=== PATIENT | female | born 1945 | race Caucasian/White ===

== ENCOUNTER → 2016-11-24 | Outpatient (CLI) | payer OTHER ==
[~2016-11-24] VITALS: Ht 154.9 cm; Wt 68.0 kg
[~2016-11-24] MED LIST: ATORVASTATIN CA40 MG PO; CALCIUM 500 +1 EAC6 PO; FENOFIBRATE160 MG PO; LEVOTHYROXINE0.05 MG PO; RALOXIFENE HCL60 MG PO; ST. JOSEPH ASPI81 M1 PO
== END | disposition home or self-care (01) ==
LOC: GI 06:44
DX: Z09 Encounter for follow-up examination after completed treatment for conditions other than malignant neoplasm (principal); K57.30 Diverticulosis of large intestine without perforation or abscess without bleeding; E78.00 Pure hypercholesterolemia, unspecified; E03.9 Hypothyroidism, unspecified; Z98.890 Other specified postprocedural states; Z90.710 Acquired absence of both cervix and uterus; Z88.2 Allergy status to sulfonamides; Z80.0 Family history of malignant neoplasm of digestive organs; Z88.8 Allergy status to other drugs, medicaments and biological substances; Z79.82 Long term (current) use of aspirin
CPT/HCPCS: 62110; 62900

== ENCOUNTER → 2017-02-17 | Outpatient (CLI) | payer OTHER ==
[2017-02-17 11:38] LABS: ABSOLUTE NEUTROPHILS 6.5 thou/uL (1.4-8.2); BASOPHILS 1.2 % (0.0-2.0); EOSINOPHILS 1.6 % (0.0-3.0); HEMATOCRIT 40.6 % (37.0-47.0); HEMOGLOBIN 13.6 gm/dL (12.0-15.0); LYMPHOCYTES 13.6 % (24.0-44.0); MCH 30.1 pg (26.0-34.0); MCHC 33.4 g/dL (28.0-37.0); MCV 90.2 fL (80.0-100.0); MONOCYTES 7.6 % (1.0-8.0); PLATELET COUNT 243 thou/uL (150-400); RDW 14.9 % (10.5-14.5); WBC 8.6 thou/uL (4.0-11.0)
[2017-02-17 11:42] LABS: URINE BILIRUBIN NEGATIVE (Negative); URINE BLOOD NEGATIVE (Negative); URINE COLOR YELLOW; URINE GLUCOSE-RANDOM* NEGATIVE (Negative); URINE KETONES NEGATIVE (Negative); URINE NITRITE POSITIVE (Negative); URINE PROTEIN (DIPSTICK) NEGATIVE (Negative); URINE SPECIFIC GRAVITY 1.025 (1.003-1.035); URINE UROBILINOGEN 0.2 E.U./dl (0.2-1.0)
[2017-02-17 11:51] LABS: BACTERIA >30 Many /HPF (None Seen); SQUAMOUS >10 Many /LPF (0-3); URINE WBC 6-15 Few /HPF (0-5)
[2017-02-17 11:52] LABS: ALBUMIN 3.4 g/dL (3.4-5.0); CALCIUM 9.3 mg/dL (8.5-10.1); CRYSTALS None Seen /LPF (None Seen); TOTAL BILIRUBIN 0.6 mg/dL (<0.1-1.0); TRANSITIONAL EPITHEL CELL 0-3 Few /LPF (None Seen); URINE RBC 0-2 Rare /HPF (0-2); YEAST Present (None Seen)
[2017-02-17 11:53] LABS: RENAL EPITHELIAL CELLS 0-3 Few /LPF (None Seen)
[2017-02-17 11:57] LABS: MANUAL DIFF NO
[2017-02-17 12:14] LABS: CASTS None Seen /LPF (None Seen)
== END ==
LOC: ULTRA 09:06 → CAT 09:06 → LABMALL 09:06
PROVIDERS: Family Medicine
DX: N28.1 Cyst of kidney, acquired (principal)

== ENCOUNTER → 2018-03-30 | Outpatient (CLI) | payer OTHER | LOC: NUC 11:17 | DX: M81.0 Age-related osteoporosis without current pathological fracture (principal); Z78.0 Asymptomatic menopausal state; Z90.710 Acquired absence of both cervix and uterus ==

== ENCOUNTER → 2018-12-27 | Outpatient (CLI) | payer OTHER ==
[~2018-12-27] VITALS: Ht 152.4 cm; Wt 68.0 kg
[~2018-12-27] MED LIST changes: +SYNTHROID50 MCG PO
--- NOTE | ~2018-12-27 | P ---
[facility] [place] [address] PROCEDURE REPORT Name: PAOLO RUIZ Room #: REG [facility]#: [id number] Admission: 12/27/18 Attend Phys: Robb Scott Discharge: Date of : 45 Report #: [id number] THIS REPORT FOR: //name// CC: Robb Albarado DATE OF SERVICE: 12/27/2018 PROCEDURE PERFORMED: Colonoscopy. HISTORY OF PRESENT ILLNESS: The patient is a 73-year-old female with a previous history of colon polyps, last colonoscopy, no polyps were noted. She has a family history of colon cancer in her father. The patient denies any symptoms at this time. Plan is for colonoscopy. DESCRIPTION OF PROCEDURE: The risks and benefits of the procedure were explained to the patient, those risks including but not limited to bleeding, perforation and the risk of sedation. She understood these risks and gave informed consent. Sedation was given using propofol per anesthesia. Next, a digital rectal exam was initially performed, which was normal. Next, using a standard Olympus colonoscope, the scope was placed in the patient's anus and advanced under direct vision to the cecum. The overall prep was good. Cecum and ileocecal valve were normal in appearance. The ascending, transverse and descending colon were normal. In the sigmoid colon, a few small diverticula were noted. No evidence of inflammation, otherwise normal. The rectal mucosa was normal. On retroflexion, small internal hemorrhoid was noted. The scope was then withdrawn and the procedure terminated. The patient tolerated the procedure well. IMPRESSION: 1. Mild sigmoid diverticulosis. 2. Internal hemorrhoids. RECOMMENDATIONS: Repeat colonoscopy in 3 years. Thank you for allowing me to participate in her care. By: [id number] Robb Carr MD /nt
== END | disposition home or self-care (01) ==
LOC: GI 06:58
DX: Z12.11 Encounter for screening for malignant neoplasm of colon (principal); Z86.010 Personal history of colon polyps; Z80.0 Family history of malignant neoplasm of digestive organs; K57.30 Diverticulosis of large intestine without perforation or abscess without bleeding; K64.8 Other hemorrhoids; E78.5 Hyperlipidemia, unspecified; E03.9 Hypothyroidism, unspecified; Z98.890 Other specified postprocedural states; Z98.41 Cataract extraction status, right eye; Z98.42 Cataract extraction status, left eye; Z79.899 Other long term (current) drug therapy; Z90.710 Acquired absence of both cervix and uterus; Z88.2 Allergy status to sulfonamides; Z88.8 Allergy status to other drugs, medicaments and biological substances
CPT/HCPCS: 62110; 62900

== ENCOUNTER → 2020-12-31 | Outpatient (CLI) | payer OTHER ==
[~2020-12-31] MED LIST changes: +ELIQUIS5 MG PO
== END ==
LOC: LAB 10:28
PROVIDERS: ATTEND Student in an Organized Health Care Education/Training Program
DX: Z20.822 Contact with and (suspected) exposure to COVID-19 (principal)

== ENCOUNTER → 2021-01-02 | Outpatient (CLI) | payer OTHER ==
[~2021-01-02] VITALS: Ht 152.4 cm; Wt 68.0 kg
--- NOTE | 2021-01-09 08:19 | P ---
[facility] [place] [address] PROCEDURE REPORT Name: PAOLO RUIZ Room #: REG [facility]#: [id number] Admission: 01/02/21 Attend Phys: Robb Scott Discharge: Date of : 45 Report #: [id number] THIS REPORT FOR: cc: Derik Triplett MD,Robb Ngo MD, MD ~ cc: Derik Triplett MD DATE OF SERVICE: 01/02/2021 PROCEDURE PERFORMED: Colonoscopy with biopsies. HISTORY OF PRESENT ILLNESS: The patient is a 75-year-old female with a family history of colon cancer who presents today for screening colonoscopy. She denies any symptoms at this time. Last colonoscopy was negative for polyps. She has a history of diverticulosis, possible diverticular bleed several years ago. She has had no bleeding or symptoms at this time. DESCRIPTION OF PROCEDURE: The risks and benefits of the procedure were explained to the patient, those risks including but not limited to bleeding, perforation and the risk of sedation. She understood these risks and gave informed consent. Sedation was given using propofol per anesthesia. Next, a digital rectal exam was initially performed, which showed small external hemorrhoid, otherwise normal. Next, using a standard Olympus colonoscope, the scope was placed in the patient's anus and advanced under direct vision to the cecum. The overall prep was excellent. In the cecum, a 3 mm sessile polyp was noted. This was removed with cold forceps, otherwise normal. The ileocecal valve was normal. The ascending, transverse and descending colon were normal. Multiple small diverticuli were noted in the sigmoid colon. No evidence of inflammation, otherwise normal. In the rectum, a 4 mm sessile polyp was noted. This was removed with cold forceps. On retroflexion, small internal hemorrhoids also noted. No evidence of bleeding. The scope was then withdrawn and the procedure terminated. The patient tolerated the procedure well. IMPRESSION: 1. Two small colonic polyps. 2. Sigmoid diverticulosis. 3. Internal and external hemorrhoids, small. 4. Otherwise, normal upper endoscopy. RECOMMENDATIONS: 1. Await biopsy results. 2. Repeat colonoscopy in 5 years. [facility] [address] [place] [address] PROCEDURE REPORT Name: SARAPAOLO Room #: [facility]#: [id number] Admission: 01/02/21 Attend Phys: Robb Scott Discharge: Date of : 45 Report #: [id number] Thank you for allowing me to participate in her care. <ELECTRONICALLY SIGNED> By: Robb Carr MD 01/09/21818 [id number] Robb Carr MD /nt
== END | disposition home or self-care (01) ==
LOC: GI 06:51
PROVIDERS: ATTEND Specialist
DX: Z12.11 Encounter for screening for malignant neoplasm of colon (principal); Z80.0 Family history of malignant neoplasm of digestive organs; K63.5 Polyp of colon; K57.30 Diverticulosis of large intestine without perforation or abscess without bleeding; K64.9 Unspecified hemorrhoids; K64.4 Residual hemorrhoidal skin tags; E78.5 Hyperlipidemia, unspecified; E03.9 Hypothyroidism, unspecified; Z98.890 Other specified postprocedural states; Z79.899 Other long term (current) drug therapy; Z90.710 Acquired absence of both cervix and uterus; Z98.41 Cataract extraction status, right eye; Z98.42 Cataract extraction status, left eye; Z88.2 Allergy status to sulfonamides; Z88.8 Allergy status to other drugs, medicaments and biological substances
CPT/HCPCS: 62110; 62900